=== PATIENT | female | born 1980 | race African-American/Black ===

== ENCOUNTER 2021-09-29 16:24 | Emergency (ER) | payer OTHER ==
[2021-09-29] MEDS ORDERED: KETOROLAC TROMETHAMINE 30 MG/1 ML VIAL IM ONE (18:05)
[2021-09-29] MEDS ORDERED: diazePAM 5 MG TABLET PO ONE (18:05)
[2021-09-29 18:12] VITALS: TEMP 97.3; BMI 31.8
[2021-09-29] MEDS ORDERED: KETOROLAC TROMETHAMINE 30 MG/1 ML VIAL ONE (18:25)
[2021-09-29] MEDS ORDERED: diazePAM 5 MG TABLET ONE (18:25)
[2021-09-29] MEDS ORDERED: LIDOCAINE 5% TOPICAL PATCH TP ONE (18:37)
[2021-09-29] MEDS ORDERED: LIDOCAINE 5% TOPICAL PATCH ONE (18:40)
[2021-09-29] MEDS ORDERED: morphine CARPU-JECT 4 MG/1 ML DISP.SYRIN IVPUSH ONE (21:39)
[2021-09-29] MEDS ORDERED: morphine SULFATE 4 MG/ML VIAL ONE (21:58)
[2021-09-29] MEDS ORDERED: LIDOCAINE PATCH REMOVAL MC ONE (22:00)
[2021-09-29 22:07] VITALS: BP 112/72; PULSE 60
[2021-09-29 22:12] LABS: BASO % 0.5 % (0-2.0); EOS % 0.8 % (0-4.5); HEMATOCRIT 32.9 % (32.4-45.2); HEMOGLOBIN 11.1 GM/dL (10.7-15.3); LYMPH % 43.7 % (8-40); MCH 31.5 pg (25.7-33.7); MCHC 33.8 g/dl (32.0-36.0); MEAN CELL VOLUME 93.2 fl (80-96); MEAN PLT VOLUME 7.3 fl (7.5-11.1); MONO % 10.7 % (3.8-10.2); NEUT % 44.3 % (42.8-82.8); PLATELET COUNT 218 10^3/uL (134-434); RBC 3.53 M/mm3 (3.60-5.2); RDW 12.9 % (11.6-15.6); WHITE BLOOD COUNT 7.9 K/mm3 (4.0-10.0)
[2021-09-29] MEDS ORDERED: ONDANSETRON 4 MG/2 ML VIAL IVPUSH ONE (22:24)
[2021-09-29 22:34] LABS: ALBUMIN 3.9 g/dl (3.4-5.0); BLOOD UREA NITROGEN 17.1 mg/dL (7-18); CALCIUM 8.9 mg/dL (8.5-10.1)
[2021-09-29 22:37] LABS: CREATININE 0.7 mg/dL (0.55-1.3)
[2021-09-29 22:39] LABS: BILIRUBIN,TOTAL 0.4 mg/dL (0.2-1); TOT PROT 7.6 g/dl (6.4-8.2)
== END 2021-09-30 00:10 | disposition home or self-care (01) ==
LOC: JER 16:24
PROC: 3E0233Z Introduction of Anti-inflammatory into Muscle, Percutaneous Approach (ICD-10-PCS; principal; 2021-09-29)
PROC: 3E033GC Introduction of Other Therapeutic Substance into Peripheral Vein, Percutaneous Approach (ICD-10-PCS; 2021-09-29)
PROC: 3E033NZ Introduction of Analgesics, Hypnotics, Sedatives into Peripheral Vein, Percutaneous Approach (ICD-10-PCS; 2021-09-29)
DX: M54.42 Lumbago with sciatica, left side (principal)
CPT/HCPCS: 36415; 73010-TC-FY; 80053; 84703; 85025; 99284-25